=== PATIENT | male | born 1990 | race African-American/Black ===

== ENCOUNTER 2019-03-20 18:28 | Emergency (ER) | payer OTHER, SELFPAY ==
[2019-03-20] VITALS (22 sets, daily range): BP systolic 176–206; BP diastolic 110–130; PULSE 73–113; RESP 6–26; TEMP 37.2; O2SAT 93–100
--- NOTE | ~2019-03-20 | CT_ITS ---
EXAMINATION: CTA brain carotid DATE: 03/20/2019 20:33 INDICATION: Headache TECHNIQUE: Computed tomographic angiography (CTA) of the head was performed without and with 100 mL O mnipaque-350 intravenous contrast. CTA of the neck was performed with intravenous contrast. The dose- length product was 1773.14 mGy-cm. Maximum intensity projection and volume rendered 3D-reconstruction s were created by the technologist on a separate workstation. Automated exposure control and iterativ e reconstruction technique were employed. COMPARISON: None. FINDINGS: HEAD CTA: . There is no intracranial hemorrhage, acute infarction, or abnormal mass lesion. The vent ricles are normal. There is no abnormal mass effect or midline shift. The ortiz-white matter different iation is normal. The basal cisterns are patent. The orbits are normal. The paranasal sinuses, mastoi ds and calvarium are normal. There is no significant stenosis of the basilar artery or posterior cere bral arteries. There is no significant stenosis of the intracranial internal carotid arteries or the anterior or middle cerebral arteries. The anterior communicating artery and posterior communicating a rteries are normal. There is no aneurysm. NECK CTA: There are no pathologically enlarged neck lymph nodes. No abnormal enhancement is present i n the neck. There is reversal of the normal cervical lordosis. There is 0% stenosis of the proximal right internal carotid artery relative to normal distal artery l umen diameter (NASCET criteria). There is 0% stenosis of the proximal left internal carotid artery re lative to normal distal artery lumen diameter. IMPRESSION: 1. No acute intracranial process. 2. Normal head CTA. 3. 0% stenosis of the proximal right internal carotid artery relative to normal distal artery lumen d iameter (NASCET criteria). 4. 0% stenosis of the proximal left internal carotid artery relative to normal distal artery lumen di ameter. Reviewed, dictated and finalized at location A. [facility] REPORTER IMPRESSION: 1. No acute intracranial process. 2. Normal head CTA. 3. 0% stenosis of the proximal right internal carotid artery relative to normal distal artery lumen diameter (NASCET criteria). 4. 0% stenosis of the proximal left internal carotid artery relative to normal distal artery lumen diameter.
--- NOTE | 2019-03-20 19:27 | ED.GENADULT ---
HPI - General Adult General Chief complaint: Headache <Filiberto Lyle PA-C - Last Filed: 03/20/19 20:55> Stated complaint: BARRAZA, Nausea <Filiberto Lyle PA-C - Last Filed: 03/20/19 20:55> Time Seen by Provider: 03/20/19 18:35 <Filiberto Lyle PA-C - Last Filed: 03/20/19 20:55> Source: patient <Filiberto Lyle PA-C - Last Filed: 03/20/19 20:55> Mode of arrival: ambulatory <Filiberto Lyle PA-C - Last Filed: 03/20/19 20:55> Limitations: no limitations <Filiberto Lyle PA-C - Last Filed: 03/20/19 20:55> History of Present Illness HPI narrative: Patient is a 28-year-old male who presents to emergency department for evaluation of right periorbital headache that woke him this morning that was moderate to severe in nature followed by an episode of emesis. Patient took [id number] pain medication with relief and on arrival notes 3 out of 10 pain. Patient denies similar occurrence in the past or other complaints. <Filiberto Lyle PA-C - Last Filed: 03/20/19 20:55> Related Data Allergies/adverse reactions: Allergies Allergy/AdvReac Type Severity Reaction Status Date / Time Cephalosporins Allergy Mild Hives / Verified 03/20/19 22:20 Red Face <Filiberto Lyle PA-C - Last Filed: 03/20/19 20:55> Review of Systems Review of Systems: All systems reviewed & are unremarkable except as noted in HPI and below <Filiberto Lyle PA-C - Last Filed: 03/20/19 20:55> PMFSH Social History Social History: Social History Smoking status: Never smoker Gender identity (if verbalized by the patient): Male <THONY Almonte Last Filed: 03/20/19 20:55> Exam Narrative: Exam Narrative: GENERAL: Well-appearing, well-nourished, and in no acute distress. HEAD: Normocephalic, atraumatic. EYES: PERRLA and EOMI. ENT: Nares clear, no rhinorrhea or epistaxis. Mucous membranes moist. Oropharynx without tonsillar hypertrophy exudate or other lesions. NECK: Supple. No adenopathy or masses. CHEST: Clear to auscultation. No respiratory distress. No wheezes rales or rhonchi HEART: Regular rate and rhythm. No murmur heard. Normal peripheral pulses. ABDOMEN: Soft, nontender, nondistended EXTREMITIES: Normal range of motion. No edema. SKIN: Warm, dry, no rash. NEURO: No focal deficits. Alert and oriented x3. Cranial nerves II through XII grossly intact. Normal speech and gait PSYCH: Normal mood and affect. <THONY Almonte Last Filed: 03/20/19 20:55> Course Course Emergency Course: Patient in the room resting comfortably at this time in no distress <THONY Almonte Last Filed: 03/20/19 20:55> Reevaluation(s) Reevaluation #1: Rechecked. Patient feels well. He denies any headache. He is able to move all extremities without any difficulty. <Lauren Walters MD - Last Filed: 03/21/19 01:35> Date: 03/20/19 <Lauren Walters MD - Last Filed: 03/21/19 01:35> Time: 23:50 <Lauren Walters MD - Last Filed: 03/21/19 01:35> Vital Signs Vital signs: Vital Signs Temperature 37.2 C 03/20/19 18:53 Pulse Rate 113 H 03/20/19 18:53 Respiratory Rate 16 03/20/19 18:53 Blood Pressure 206/121 H 03/20/19 18:53 Pulse Oximetry 100 03/20/19 18:53 Temperature 37.0 C 03/21/19 00:29 Pulse Rate 81 03/21/19 00:29 Respiratory Rate 16 03/21/19 00:29 Blood Pressure 174/110 H 03/21/19 00:29 Pulse Oximetry 100 03/21/19 00:29 <THONY Almonte Last Filed: 03/20/19 20:55> Vital Signs Temperature 37.2 C 03/20/19 18:53 Pulse Rate 113 H 03/20/19 18:53 Respiratory Rate 16 02/11/20 18:53 Blood Pressure 206/121 H 03/20/19 18:53 Pulse Oximetry 100 03/20/19 18:53 Temperature 37.0 C 03/21/19 00:29 Pulse Rate 81 03/21/19 00:29 Respiratory Rate 16 03/21/19 00:29 Blood Pressure 174/110 H 03/21/19 00:29 Pulse Oximetry 100
[2019-03-20] MEDS: SODIUM CHLORIDE 0.9% IV 1,000 ML 999 ML IV CONT (19:33)
[2019-03-20] MEDS: KETOROLAC 30 MG/ML VIAL (*BKC) IV PUSH (19:33)
[2019-03-20 19:43] LABS: Basophils Percent Auto 0.2 % (0.2-1.2); Eosinophils Absolute Auto 0.1 K/mm3 (0-0.3); Eosinophils Percent Auto 1.5 % (0-4.4); Hematocrit 48.8 % (42.0-52.0); Hemoglobin 16.5 g/dL (14.0-18.0); Immature Granulocyte Absolute 0.03 K/mm3 (0.00-0.031); Immature Granulocyte Percent A 0.3 % (0-0.5); Lymphocytes Absolute Auto 1.59 K/mm3 (0.9-3.2); Lymphocytes Percent Auto 18.1 % (18.3-44.2); Mean Corpuscular HGB Conc 33.8 g/dl (32-36); Mean Corpuscular Hemoglobin 29.9 pg (26-34); Mean Corpuscular Volume 88.4 fl (80-100); Mean Platelet Volume 10.5 fl (7.4-10.4); Monocytes Absolute Auto 0.4 K/mm3 (0.1-0.6); Monocytes Percent Auto 4.7 % (2.6-8.5); Neutrophils Absolute Auto 6.6 K/mm3 (1.3-6.7); Neutrophils Percent Auto 75.2 % (45.5-73.1); Platelet Count Result 278 k/mm3 (150-375); Red Blood Count 5.52 M/mm3 (4.6-6.20); Red Cell Distribution Width 12.3 % (11.5-14.5); White Blood Count 8.8 K/mm3 (4.5-10.0)
[2019-03-20 19:46] LABS: Add Urine Microscopic? YES; Appearance Urine Clear (Clear); Bilirubin Urine Negative (Negative); Blood Urine Negative (Negative); Color Urine Yellow (Yellow); Glucose Urine UA Negative (Negative); Ketones Urine Negative (Negative); Leukocyte Esterase Ur Negative LEU/UL (Negative); Mucus Urine Moderate /lpf; Nitrate Urine Negative (Negative); Protein Urine 2+ mg/dL (Negative); RBC Urine 0-2 /hpf (0-2); Squamous Epithelial Cell Urine Occasional /hpf (Few); WBC Urine 0-3 /hpf
[2019-03-20 19:47] LABS: Specific Grav Ur 1.031 (1.001-1.035)
[2019-03-20 19:53] LABS: Alanine Aminotransferase 40 U/L (4-50); Albumin Level 5.1 g/dL (3.5-5.1); Alkaline Phosphatase 58 U/L (38-126); Aspartate Amino Transferase 33 U/L (17-59); Bilirubin,Total 0.8 mg/dL (0.2-1.3); Blood Urea Nitrogen 21 mg/dL (9-20); Calcium 10.1 mg/dL (8.4-10.2); Carbon Dioxide 31 mmol/L (22-30); Chloride 98 mmol/L (98-107); Estimated CRCL calculation 97 ml/min; Estimated Glomerular Filt Rate > 60; Glucose 138 mg/dL (75-110); Potassium 3.4 mmol/L (3.4-5.0); Sodium 143 mmol/L (137-145)
[2019-03-20] MEDS: METOPROLOL TARTRATE INJ 5 MG/5 ML VIAL IV PUSH ×2 (20:17→21:10)
[2019-03-20 20:44] LABS: Amphetamine Screen Urine Negative (Negative); Barbiturate Screen Urine Negative (Negative); Benzodiazepines Screen Urine Negative (Negative); Cannabinoid Screen Urine Negative (Negative); Cocaine Screen Urine Negative (Negative); Methadone Screen Urine Negative (Negative); Opiate Screen Urine Negative (Negative); Phencyclidine Screen Urine Negative (Negative)
[2019-03-20] MEDS: lisinopriL 20 MG TABLET PO (21:14)
[2019-03-20] MEDS: hydroCHLOROthiazide 25 MG TABLET PO (21:14)
[2019-03-20] MEDS: AMLODIPINE BESYLATE 5 MG TABLET 10 MG PO (22:31)
[2019-03-21 00:29] VITALS: BP 174/110; PULSE 81; RESP 16; TEMP 37; O2SAT 100
--- NOTE | 2019-03-24 06:18 | PC.NURSE ---
LATE ENTRY This note is being entered to document information to the patient's record. The following information was omitted on [NS STOP TIME 0619], by [LIZA BOLES].
== END 2019-03-21 00:30 | disposition home or self-care (01) ==
PROVIDERS: Emergency Medicine Emergency Medical Services; Emergency Provider Emergency Medicine
DX: G43.909 Migraine, unspecified, not intractable, without status migrainosus (principal)
CPT/HCPCS: 36415; 70496; 70498; 80053; 80307; 81001; 85025; 96374; 96375; 96376; 99284; A9270; J1885; J7030; Q9967

== ENCOUNTER 2021-04-04 23:09 | Observation (INO) | payer OTHER, SELFPAY ==
[2021-04-04] VITALS (7 sets, daily range): BP systolic 192–205; BP diastolic 128–141; PULSE 99–112; RESP 16–22; TEMP 36.9; O2SAT 100
--- NOTE | ~2021-04-04 | CT_ITS ---
EXAMINATION: CT brain wo con EXAM DATE: 04/05/2021 01:17 INDICATION: right frontal headache, hx HTN . TECHNIQUE: Spiral CT of the head was performed without contrast. Axial, coronal and sagittal images were reviewed. The dose-length product (DLP) for this examination was 605.33 mGy-cm. The exposure w as tailored according to patient size, and iterative reconstruction (ASIR) was used as additional dos e reduction technique. Comparison is made to prior examination from 03/20/2019. FINDINGS: There is no acute intraparenchymal hemorrhage. No evidence of intraparenchymal brain mass lesion. No evidence of acute infarction. There is no mass effect or midline shift. The ventricles are normal in size. There are no extra-axial collections. There are no acute calvarial fractures. T he orbits are unremarkable. Soft tissue is unremarkable. The visualized sinuses and mastoid air maribel ls are well aerated. IMPRESSION: 1. No acute intracranial findings. Reviewed, dictated and finalized at location A. [employer] OFFICER
--- NOTE | 2021-04-04 23:34 | ECG_ITS ---
Measurements Intervals [place] Rate: 98 P: 13 MT: 118 QRS: -13 QRSD: 86 T: 142 QT: 342 QTc: 437 Interpretive Statements SINUS RHYTHM WITH SHORT MT INTERVAL EARLY PRECORDIAL R/S TRANSITION LEFT VENTRICULAR HYPERTROPHY AND ST-T CHANGE BORDERLINE T WAVE ABNORMALITY- LATERAL LEADS BASELINE ARTIFACT- I, II, III, AVR, AVL, AVF, V1-V6 BORDERLINE ECG Electronically Signed On 04-05-2021 7:24:31 [employer] by Lico Enriquez D.O.
[2021-04-04] MEDS: hydroCHLOROthiazide 25 MG TABLET PO (23:47)
[2021-04-05] VITALS (47 sets, daily range): BP systolic 134–185; BP diastolic 91–126; PULSE 92–126; RESP 12–23; TEMP 36.2–36.7; O2SAT 98–100; BMI 32.7
[2021-04-05] LABS: Basophils Percent Auto 0.3 % (0.2-1.2); Eosinophils Absolute Auto 0.2 K/mm3 (0-0.3); Hematocrit 46.2 % (42.0-52.0); Hemoglobin 16.1 g/dL (14.0-18.0); Immature Granulocyte Absolute 0.04 K/mm3 (0.00-0.031); Immature Granulocyte Percent A 0.4 % (0-0.5); Lymphocytes Absolute Auto 2.71 K/mm3 (0.9-3.2); Lymphocytes Percent Auto 25.5 % (18.3-44.2); Mean Corpuscular HGB Conc 34.8 g/dl (32-36); Mean Corpuscular Hemoglobin 30.7 pg (26-34); Mean Platelet Volume 10.1 fl (7.4-10.4); Monocytes Absolute Auto 0.6 K/mm3 (0.1-0.6); Monocytes Percent Auto 5.8 % (2.6-8.5); Platelet Count Result 307 k/mm3 (150-375); Red Blood Count 5.25 M/mm3 (4.6-6.20); Red Cell Distribution Width 12.1 % (11.5-14.5); White Blood Count 10.6 K/mm3 (4.5-10.0)
[2021-04-05 00:01] LABS: Alanine Aminotransferase 57 U/L (4-50); Albumin Level 4.8 g/dL (3.5-5.1); Alkaline Phosphatase 62 U/L (38-126); Anion Gap 8 mmol/L (8-16); Aspartate Amino Transferase 40 U/L (17-59); Bilirubin,Total 0.5 mg/dL (0.2-1.3); Blood Urea Nitrogen 18 mg/dL (9-20); Calcium 9.5 mg/dL (8.4-10.2); Carbon Dioxide 33 mmol/L (22-30); Chloride 100 mmol/L (98-107); Estimated CRCL calculation 93 ml/min; Estimated Glomerular Filt Rate > 60; Glucose 144 mg/dL (65-110); Potassium 3.5 mmol/L (3.4-5.0); Sodium 141 mmol/L (137-145)
[2021-04-05 00:02] LABS: Prothrombin Time 12.8 Seconds (11.1-14.7)
[2021-04-05 00:03] LABS: Partial Thromboplastin Time 32.4 SECONDS (22.3-36.8)
[2021-04-05 00:04] LABS: Add Urine Microscopic? YES; Appearance Urine Clear (Clear); Bilirubin Urine Negative (Negative); Blood Urine Negative (Negative); Color Urine Straw (Yellow); Glucose Urine UA 1+ mg/dL (Negative); Ketones Urine Negative (Negative); Leukocyte Esterase Ur Negative LEU/UL (Negative); Mucus Urine Rare /lpf; Nitrate Urine Negative (Negative); Protein Urine Negative (Negative); RBC Urine 0-2 /hpf (0-2); Specific Grav Ur 1.019 (1.001-1.035); Squamous Epithelial Cell Urine Rare /hpf (Few); Urobilinogen Urine Negative mg/dL (<2.0); WBC Urine 0-3 /hpf
--- NOTE | 2021-04-05 01:16 | ED.HA ---
HPI - Headache General Chief Complaint: Headache Stated Complaint: headache Time Seen by Provider: 04/04/21 23:21 Source: patient, RN notes reviewed and old records reviewed Mode of arrival: ambulatory Limitations: no limitations History of Present Illness HPI Narrative: This is a 30 year old male with history of hypertension who presents for evaluation of right frontal headache. He developed a dull aching headache at noon today. He reports headache as gradual onset . He took BC powder for his headache and it is almost resolved. He came to ER because he assumed his headache was due to high blood pressure. He denies associated blurred vision, photophobia, nausea, vomiting, chest pain or shortness of breath. He ran out of his blood pressure medication 2 months ago. He was taking amlodipine, lisinopril with hydrochlorothiazide. He rates his headache as 2/10 right now. Related Data Allergies Allergy/AdvReac Type Severity Reaction Status Date / Time Cephalosporins Allergy Mild Hives / Verified 03/20/19 22:20 Red Face Review of Systems Review of Systems: All systems reviewed & are unremarkable except as noted in HPI and below PMFSH Past Medical History Medical History (Updated 04/05/21 @ 07:04 by Yue Herrera MD) Hypertension Surgical History Surgical History (Updated 04/05/21 @ 01:20 by Yue Herrera MD) History of tonsillectomy and adenoidectomy Family History Family History (Updated 04/05/21 @ 05:03 by Nancy Paredes RN) Grandparent Diabetes mellitus Hypertension Social History Social History Smoking status: Never smoker Second hand tobacco smoke exposure: No Alcohol intake: current Drinks per week: 1 Substance use: never Gender identity (if verbalized by the patient): Male Spiritual care concerns: No Exam Narrative: GENERAL: Well-appearing, well-nourished, and in no acute distress. HEAD: Normocephalic, atraumatic EYES: PERRLA and EOMI, conjunctiva clear without discharge EARS: TM's clear bilaterally without erythema or dullness NOSE: Nares clear, no rhinorrhea or epistaxis THROAT:Mucous membranes moist, Oropharynx normal without erythema, exudate, peritonsillar swelling or fluctuance NECK: Supple, without lymphadenopathy or mass RESPIRATORY: No respiratory distress, Airway patent, Respirations non-labored, Clear to auscultation without rales, rhonchi or wheeze HEART: Regular rate and rhythm. No murmur heard. Normal peripheral pulses. ABDOMEN: Soft, nontender, nondistended, normal active bowel sounds. No masses. No rebound or guarding, No organomegaly. EXTREMITIES: No edema, normal strength with full range of motion. SKIN: Warm, dry, normal color without rash NEURO: Alert and oriented x3. CN 2-12 grossly intact. No focal deficits. PSYCH: Normal mood and affect. Course Reevaluation(s) Reevaluation #1: I Discussed with patient BP still elevated. IT has decreased. He reports mild headache still. HE is agreeable to observation. I spoke with Dr. pringle who accepts in IMU. recommends ordering hydralazine q 4 hours for SBP over 180 Date: 04/05/21 Time: 03:31 Vital Signs Vital signs: Vital Signs Pulse Oximetry 100 04/04/21 23:22 Temperature 98.1 F 04/05/21 04:26 Pulse Rate 100 04/05/21 06:00 Respiratory Rate 18 04/05/21 04:26 Blood Pressure 181/111 H 04/05/21 04:26 Pulse Oximetry 100 04/05/21 05:00 MDM - Headache Medical Records Attestation: I reviewed the patient's medical records. Lab Data Attestation: I reviewed the patient's lab results. Result diagrams: 04/04/21 23:40 04/04/21 23:40 Labs: Lab Results 04/04/21 04/04/21 04/04/21 Range/Units 23:40 23:40 23:40 WBC 10.6 H (4.5-10.0) K/mm3 RBC 5.25 (4.6-6.20) M/mm3 Hgb 16.1 (14.0-18.0) g/dL Hct 46.2 (42.0-52.0) % MCV 88.0 (80-100) fl MCH 30.7 (26-34)
[2021-04-05] MEDS: amLODIPine BESYLATE 5 MG TABLET 10 MG PO (01:26)
[2021-04-05] MEDS: lisinopriL 20 MG TABLET PO (01:27)
--- NOTE | 2021-04-05 02:58 | PC.NURSE ---
Report received from KATIE Dominique. This nurse assumes care of patient at this time. Patient ambulates to the bathroom and back to room with even steady gait. Patient denies any pain at this time.
[2021-04-05] MEDS: hydrALAZINE HCL 20 MG/ML VIAL 10 MG IV PUSH ×2 (03:20→17:21)
--- NOTE | 2021-04-05 04:38 | PC.NURSE ---
This patient, Vivek Zelaya, was admitted to IMU Room 204-01 at 0436. Patient/family oriented to hospital policies and general routines including ID bracelet, bed and alarms, visiting hours, pain management, procedures, bathroom and other care routines, personal items, smoking policy, room service/diet, and visiting hours. Information on how to activate the Rapid Response Team has been discussed. Patient/Family are encouraged to report perceived risks to care and to ask questions if they do not understand what they are told or what they should do.
[2021-04-05] MEDS: ACETAMINOPHEN 325 MG TABLET 650 MG PO ×3 (06:57→17:04)
--- NOTE | 2021-04-05 09:42 | PM.IMHP ---
H&P: HPI History of Present Illness Date/Time: 04/05/21729 This 30 year old, very pleasant male patient with significant PMH of HTN, presented to the ER overnight with complaints of a continued headache on the right side for the past 12 hours. He noted that he took BC powders without any relief so he thought it might be his BP. He notes that he is supposed to be taking three different medications at home but he ran out of them two months ago. He reports that his insurance coverage recently changed and he did not have a doctor to follow up with. He reportedly is establishing with Tracie Chino in [place], but he has yet to actually see her. Upon arrival to the ER his BP was noted to be 181/111. He denied any CP, Dyspnea, Visual changes, focal neurological complaint and no N/V. Labs were essentially unremarkable and CT of the brain was negative for any acute findings. His EKG showed NSR 98 bpm with no ectopy or ischemia. He was admitted to the hospital for Hypertensive Urgency/Emergency. He has been receiving IV Hydralazine for his treatment, and pressure is slowly coming back down. We will begin his home medications today as his BP is high enough to support them and will monitor through today. Current headache is a 2/10. He is receiving Tylenol for the pain and it is controlling. Chief Complaint: Headache Review of Systems Review of Systems: 12 point ROS was obtained and is negative except as noted in HPI All systems reviewed & are unremarkable except as noted in HPI and below PMFSH Past Medical History Medical History Hypertension Surgical History Surgical History History of tonsillectomy and adenoidectomy Family History Family History Grandparent Diabetes mellitus Hypertension Social History Social History Smoking status: Never smoker Second hand tobacco smoke exposure: No Alcohol intake: current Drinks per week: 1 Substance use: never Gender identity (if verbalized by the patient): Male Spiritual care concerns: No Meds Home Medications and Allergies Home Medications Medication Instructions Recorded Confirmed Type amlodipine 10 mg PO DAILY #30 tablet 03/21/19 04/05/21 Rx lisinopril-hydrochlorothiazide 1 tablet PO DAILY #30 tablet 03/21/19 04/05/21 Rx [Zestoretic] Allergies Allergy/AdvReac Type Severity Reaction Status Date / Time Cephalosporins Allergy Mild Hives / Verified 03/20/19 22:20 Red Face Vital Signs Vital Signs - 24 hr 04/04/21 23:22 04/04/21 23:23 04/04/21 23:30 Temperature Pulse Rate 112 H Respiratory Rate 18 Blood Pressure 195/141 H Pulse Oximetry 100 100 100 04/04/21 23:31 04/04/21 23:32 04/04/21 23:45 Temperature 98.4 F Pulse Rate 99 103 H 100 Respiratory Rate 16 22 H 19 Blood Pressure 205/135 H 205/135 H Pulse Oximetry 100 100 100 04/04/21 23:47 04/05/21 00:00 04/05/21 00:02 Temperature Pulse Rate 99 98 93 Respiratory Rate 19 18 20 Blood Pressure 192/128 H 181/126 H Pulse Oximetry 100 100 100 04/05/21 00:15 04/05/21 00:17 04/05/21 00:30 Temperature Pulse Rate 106 H 102 H 94 Respiratory Rate 21 H 20 18 Blood Pressure 180/115 H Pulse Oximetry 100 100 99 04/05/21 00:31 04/05/21 00:45 04/05/21 00:47 Temperature Pulse Rate 96 92 98 Respiratory Rate 17 17 22 H Blood Pressure 182/123 H 185/125 H Pulse Oximetry 98 99 100 04/05/21 01:18 04/05/21 01:22 04/05/21 01:23 Temperature Pulse Rate 98 Respiratory Rate 20 Blood Pressure 182/107 H 182/107 H Pulse Oximetry 100 100 98 04/05/21 01:30 04/05/21 01:32 04/05/21 01:45 Temperature Pulse Rate 97 103 H 103 H Respiratory Rate 21 H 20 21 H Blood Pressure 168/93 H 168/93 H Pulse Oximetry
[2021-04-05] MEDS: traMADol HCL (*CRX) 50 MG TABLET PO (19:58)
[2021-04-06] VITALS (15 sets, daily range): BP systolic 142–164; BP diastolic 95–116; PULSE 80–122; RESP 16–20; TEMP 35.8–36.6; O2SAT 98–100
[2021-04-06] MEDS: lisinopriL 20 MG TABLET PO (08:50)
[2021-04-06] MEDS: amLODIPine BESYLATE 5 MG TABLET 10 MG PO (08:50)
[2021-04-06] MEDS: hydroCHLOROthiazide 25 MG TABLET PO (08:50)
[2021-04-06] MEDS: METOPROLOL TARTRATE 50 MG TAB PO (09:43)
--- NOTE | 2021-04-06 13:35 | PM.DS ---
DS: Admitting Diagnosis Discharge Date 04/06/21 Admitting Diagnosis Hypertensive Urgency Acute Headache DS: Discharge Diagnosis Discharge Diagnosis (1) Hypertensive urgency: Onset Date: ~04/04/21 Code(s): I16.0 - Hypertensive urgency Status: Acute Assessment and Plan: - Secondary to pt. being out of his home medications. - Pt. has been restarted on his home medications of Amlodipine 10 mg QAM, HCTZ 25 mg QAM, Lisinopril 20 mg po QAM and also Metoprolol Tartrate was introduced at 50 mg po Q12 hours. He will be started on this medication as well. - Pt. has new PCP to follow up with at Discharge, Tracie Chino in [place]. He will be advised to keep a log of BP's and take with him to his appointment. (2) Acute headache: Onset Date: ~04/04/21 Qualifiers: Headache type: unspecified Intractability: not intractable Qualified Code(s): R51.9 - Headache, unspecified Code(s): R51.9 - Headache, unspecified Status: Acute Assessment and Plan: - Secondary to uncontrolled HTN. - Now resolved. DS: Summary Hospital Course Reason for hospitalization: Hypertension Headache Hospital Course: This 30 year old, very pleasant male patient with significant PMH of HTN, presented to the ER with complaints of a continued headache on the right side for the past 12 hours prior to arrival now over 24 hours ago. He noted that he took BC powders without any relief so he thought it might be his BP. He notes that he is supposed to be taking several medications at home but he ran out of them two months ago. He reports that his insurance coverage recently changed and he did not have a doctor to follow up with. He reportedly is establishing with Tracie Chino in [place], but he has yet to actually see her. Upon arrival to the ER his BP was noted to be 181/111. He denied any CP, Dyspnea, Visual changes, focal neurological complaint and no N/V. Labs were essentially unremarkable and CT of the brain was negative for any acute findings. His EKG showed NSR 98 bpm with no ectopy or ischemia. He was admitted to the hospital for Hypertensive Urgency/Emergency. Treatment was started with his home Lisinopril/HCTZ, Amlodipine and he was also started on Metoprolol Tartrate 50 mg po BID in order to control the patient's BP. His headache has resolved. He will be discharged to home to follow up with a PCP for continued management. Status at Discharge Functional status at discharge: independent ambulation Overall status at discharge: patient is back to baseline Time Spent with Patient Time attestation: Total time spent providing and/or coordinating discharge services: 25 minutes Exam Const: General: comfortable and no acute distress; No in distress HENMT: Mouth: Yes moist mucous membranes Eyes: General: appearance normal, both eyes and all related structures Sclera: sclerae normal Pupils: Equal, round and reactive pupils present EOM: EOMs intact bilaterally Neck: Neck: supple and no JVD Thyroid: thyroid normal Lymphatic: lymphadenopathy not noted Resp: Effort & Inspection: normal respiratory effort Auscultation: clear to auscultation bilaterally Cardio: Rate: regular rate Rhythm: regular rhythm GI: Auscultation: normal bowel sounds Skin: General skin exam: normal color, no rashes or lesions noted and no erythema Neuro: General: gait normal Cranial nerves: Yes Equal, round and reactive pupils present Cognition (Neuro): normal cognition Speech: normal speech Motor exam (neuro): 5/5 motor strength present throughout and Normal motor muscle tone present throughout Sensory Exam: normal sensation Extrem: General: normal to inspection Right upper extremity: normal to inspection Left upper extremity: normal to inspection Right lower extremity: normal to inspection Left lower extremity: normal to inspection Psych: Mental Status: mental status grossly normal Affect: normal affect DS
== END 2021-04-06 14:57 | disposition home or self-care (01) ==
LOC: ANHED 04-05 00:12 → ANHIMU 04-05 03:55
PROVIDERS: Admitting Provider Internal Medicine; Emergency Provider General Practice; PCP Nurse Practitioner; Visit Provider Chiropractor
DX: I16.0 Hypertensive urgency (principal); R51.9 Headache, unspecified; I10 Essential (primary) hypertension
CPT/HCPCS: 36415; 70450; 80053; 81001; 85025; 85610; 85730; 93005; 96374; 96375; 99285; A9270; G0378; G0379; J0360